=== PATIENT | female | born 2000 | race Hispanic/Latino ===

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

== ENCOUNTER 2020-02-24 23:35 | Emergency (ER) | payer SELFPAY ==
[2020-02-25] MEDS ORDERED: Ketorolac Tromethamine 30 MG/ML VIAL ONE (00:58)
--- NOTE | 2020-02-25 07:48 | RAD ---
PORTABLE CHEST: INDICATION: Shortness of breath. FINDINGS: Lung chand are clear. Heart and mediastinum appear normal. IMPRESSION: No acute process. POS: [facility]
== END 2020-02-25 00:15 | disposition home or self-care (01) ==
LOC: ERS 23:35
DX: M54.5 Low back pain (principal); R09.1 Pleurisy
CPT/HCPCS: 71045; 96372; J1885

== ENCOUNTER 2022-02-11 18:20 | Emergency (ER) | payer SELFPAY ==
[2022-02-11] MEDS ORDERED: Ketorolac Tromethamine 30 MG/ML VIAL ONE (18:53)
== END 2022-02-11 19:23 | disposition home or self-care (01) ==
LOC: ERS 18:20
DX: S39.012A Strain of muscle, fascia and tendon of lower back, initial encounter (principal); Y93.B3 Activity, free weights
CPT/HCPCS: 96372; 99283; J1885